=== PATIENT | male | born 1955 | race Caucasian/White ===

== ENCOUNTER 2021-10-25 14:42 | Inpatient (IN) | payer OTHER ==
[~2021-10-25] VITALS: Ht 175.2 cm; Wt 89.7 kg
[~2021-10-25 14:42] MED LIST: ATIVAN1 MG PO; CAPOTEN25 MG PO; DEBROX 30 ML30 ML OT; TRAMADOL HCL50 MG PO; TRIMOX500 MG PO; VICODIN 500 MG-1 TAB PO
[2021-10-25] MEDS ORDERED: RISPERIDONE1 M1 PO (15:47)
[2021-10-25] MEDS ORDERED: REMERON15 M2 PO (15:48)
[2021-10-25] MEDS ORDERED: DEPAKOTE DR500 MG PO (15:49)
[2021-10-25] MEDS ORDERED: ADMELOG100 UNIT/1 SQ (15:54)
[2021-10-25] MEDS ORDERED: COZAAR100 MG PO (15:55)
[2021-10-25] MEDS ORDERED: SEMGLEE100 UNIT/1 SC (16:00)
[2021-10-25] MEDS ORDERED: ALBUTEROL S5 MG/1 ML INH (16:03)
[2021-10-25] MEDS ORDERED: ELIQUIS5 M1 PO (16:04)
[2021-10-25] MEDS ORDERED: FAMOTIDINE20 MG/2 ML IV (16:35)
[2021-10-25] MEDS ORDERED: DIABETIC T100 MG/52 NG (16:39)
[2021-10-25] MEDS ORDERED: Hydralazine Hyd25 MG PO (16:41)
[2021-10-25 17:32] VITALS: BP 102/73
[2021-10-25] MEDS ORDERED: PROAIR DIGIHAL90 MCG INH (17:50)
[2021-10-25] MEDS ORDERED: FLONASE ALLERG9.9 ML NAS (17:52)
[2021-10-25] MEDS ORDERED: LORADAMED10 MG PO (17:54)
[2021-10-25] MEDS ORDERED: NITROSTAT0.4 MG SL (17:56)
[2021-10-25] MEDS ORDERED: PROTONIX40 MG PO (17:57)
[2021-10-25] MEDS ORDERED: SPIRIVA RESPIMAT4 GM INH (18:00)
[2021-10-25] MEDS ORDERED: CRESTOR40 M1 PO (18:01)
[2021-10-25] MEDS ORDERED: METOPROLOL SUCC50 M2 PO (18:02)
[2021-10-25] MEDS ORDERED: ST. JOSEPH ASPI81 M1 PO (18:04)
[2021-10-25] MEDS ORDERED: VIMPAT100 MG PO (18:11)
[2021-10-25] MEDS ORDERED: HYDROXYZINE PAM25 M1 PO (18:12)
[2021-10-25 20:00] VITALS: BP 111/65
[2021-10-26 07:04] LABS: BASO % 0.7 % (0.0-1.0); EOS # 0.3 10*3/uL (0.0-0.4); EOS % 4.6 % (1.0-4.0); HEMATOCRIT 42.1 % (42.0-52.0); LYMPH # 1.2 10*3/uL (1.3-4.4); LYMPH % 21.6 % (27.0-41.0); MEAN CELL VOLUME 89.8 fl (80.0-94.0); MEAN CORPUSCULAR HGB 29.2 pg (27.0-31.0); MEAN CORPUSCULAR HGB CONC 32.5 g/dl (33.0-37.0); MEAN PLATELET VOLUME 8.9 fl (9.6-12.3); MONO # 0.8 10*3/uL (0.1-1.0); MONO % 14.9 % (3.0-9.0); NEUT # 3.3 10*3/uL (2.3-7.9); NEUT % 57.5 % (47.0-73.0); PLATELET COUNT AUTOMATED 141 10*3/uL (130-400); RED BLOOD COUNT 4.69 10*6/uL (4.50-5.90); RED CELL DISTRI WIDTH 13.1 % (0-14.5); WHITE BLOOD COUNT 5.7 10*3/uL (4.8-10.8)
[2021-10-26 07:25] LABS: ALBUMIN 2.4 gm/dl (3.1-4.5); ALKALINE PHOSPHATASE 46 U/L (45-117); BUN 19 mg/dl (7-24); CHLORIDE 107 mmol/L (98-107); CHOLESTEROL 116 mg/dL (<200); LDL CHOLESTEROL 61 mg/dL (9-159); POTASSIUM 3.4 mmol/L (3.5-5.1); SGOT/AST 31 IU/L (3-35); SGPT/ALT 36 U/L (12-78); SODIUM 142 mmol/L (136-145); TRIGLYCERIDES 89 mg/dl (<150)
[2021-10-26 07:32] LABS: THYROID STIM HORMONE (HS) 0.615 uIU/ml (0.358-4.75)
[2021-10-26 07:38] VITALS: BP 135/58
[2021-10-26 20:07] VITALS: BP 132/82
[2021-10-27 07:37] VITALS: BP 139/90
[2021-10-27 09:17] LABS: BASO # 0.1 10*3/uL (0.0-0.1); BASO % 0.9 % (0.0-1.0); EOS # 0.3 10*3/uL (0.0-0.4); EOS % 4.5 % (1.0-4.0); HEMATOCRIT 43.5 % (42.0-52.0); LYMPH % 17.1 % (27.0-41.0); MEAN CELL VOLUME 89.7 fl (80.0-94.0); MEAN CORPUSCULAR HGB 28.7 pg (27.0-31.0); MEAN PLATELET VOLUME 8.7 fl (9.6-12.3); MONO # 0.9 10*3/uL (0.1-1.0); MONO % 15.3 % (3.0-9.0); NEUT # 3.5 10*3/uL (2.3-7.9); NEUT % 61.2 % (47.0-73.0); PLATELET COUNT AUTOMATED 154 10*3/uL (130-400); RED BLOOD COUNT 4.85 10*6/uL (4.50-5.90); WHITE BLOOD COUNT 5.7 10*3/uL (4.8-10.8)
[2021-10-27 09:30] LABS: INTERNATIONAL NORM RATIO 1.2 (2.0-3.5)
[2021-10-27 14:38] LABS: BILIRUBIN 1+ (Negative); BLOOD 3+ (Negative); CLARITY Cloudy (Clear); COLOR Orange (Yellow); GLUCOSE Negative (Negative); KETONE Trace (Negative); LEUKO ESTERASE 1+ (Negative); NITRITE Negative (Negative); SPECIFIC GRAVITY 1.025 (1.001-1.030)
[2021-10-27 14:40] LABS: RBC TNTC rbc/hpf (0-2)
[2021-10-27 20:00] VITALS: BP 115/50
[2021-10-28 07:20] LABS: BASO # 0.1 10*3/uL (0.0-0.1); BASO % 0.9 % (0.0-1.0); EOS # 0.3 10*3/uL (0.0-0.4); EOS % 4.7 % (1.0-4.0); HEMATOCRIT 42.4 % (42.0-52.0); LYMPH # 1.9 10*3/uL (1.3-4.4); LYMPH % 28.6 % (27.0-41.0); MEAN CORPUSCULAR HGB 28.8 pg (27.0-31.0); MEAN CORPUSCULAR HGB CONC 31.6 g/dl (33.0-37.0); MEAN PLATELET VOLUME 9.3 fl (9.6-12.3); MONO # 0.9 10*3/uL (0.1-1.0); MONO % 13.8 % (3.0-9.0); NEUT # 3.4 10*3/uL (2.3-7.9); NEUT % 50.8 % (47.0-73.0); PLATELET COUNT AUTOMATED 176 10*3/uL (130-400); RED BLOOD COUNT 4.66 10*6/uL (4.50-5.90); RED CELL DISTRI WIDTH 12.9 % (0-14.5); WHITE BLOOD COUNT 6.7 10*3/uL (4.8-10.8)
[2021-10-28 08:13] VITALS: BP 132/66
[2021-10-28 20:00] VITALS: BP 144/84
[2021-10-29 07:39] VITALS: BP 121/67
[2021-10-29 11:38] LABS: HEMATOCRIT 34.4 % (42.0-52.0); MEAN CELL VOLUME 90.5 fl (80.0-94.0); MEAN CORPUSCULAR HGB 29.2 pg (27.0-31.0); MEAN CORPUSCULAR HGB CONC 32.3 g/dl (33.0-37.0); MEAN PLATELET VOLUME 9.2 fl (9.6-12.3); RED CELL DISTRI WIDTH 13.1 % (0-14.5); WHITE BLOOD COUNT 4.4 10*3/uL (4.8-10.8)
[2021-10-29 11:39] LABS: PLATELET COUNT AUTOMATED 106 10*3/uL (130-400)
[2021-10-29 11:53] LABS: BASOPHILS 1 % (0-1); OVALOCYTES FEW; PLATELET SUFFICIENCY LOW (NORMAL); TOTAL CELLS COUNTED 100 #CELLS
[2021-10-29 20:00] VITALS: BP 147/73
[2021-10-30 06:27] LABS: HEMATOCRIT 37.2 % (42.0-52.0); MEAN CELL VOLUME 91.2 fl (80.0-94.0); MEAN CORPUSCULAR HGB 28.9 pg (27.0-31.0); MEAN CORPUSCULAR HGB CONC 31.7 g/dl (33.0-37.0); MEAN PLATELET VOLUME 9.1 fl (9.6-12.3); PLATELET COUNT AUTOMATED 106 10*3/uL (130-400); RED BLOOD COUNT 4.08 10*6/uL (4.50-5.90); RED CELL DISTRI WIDTH 13.2 % (0-14.5)
[2021-10-30 06:47] LABS: BUN 18 mg/dl (7-24); CHLORIDE 105 mmol/L (98-107); CREATININE 0.94 mg/dL (0.70-1.30); POTASSIUM 3.9 mmol/L (3.5-5.1); SODIUM 142 mmol/L (136-145)
[2021-10-30 07:29] VITALS: BP 145/82; BP 165/69
[2021-10-30 08:12] LABS: ATYPICAL LYMPHS 1 % (0-0); BASOPHILS 1 % (0-1); TOTAL CELLS COUNTED 100 #CELLS
[2021-10-30 08:13] LABS: OVALOCYTES FEW; PLATELET SUFFICIENCY LOW (NORMAL); POLYCHROMASIA SLIGHT
[2021-10-30 20:00] VITALS: BP 140/67
[2021-10-31 08:10] VITALS: BP 133/81
[2021-10-31 20:00] VITALS: BP 132/59
[2021-11-01 08:07] VITALS: BP 142/76
[2021-11-01] MEDS ORDERED: DIVALPROEX SOD500 MG PO (09:42)
[2021-11-01] MEDS ORDERED: LORAZEPAM0.5 MG PO (09:42)
[2021-11-01] MEDS ORDERED: VITAMIN D3125 MC1 PO (09:42)
[2021-11-01] MEDS ORDERED: MIRTAZAPINE15 M2 PO (09:42)
[2021-11-01] MEDS ORDERED: ROZEREM8 MG PO (09:42)
== END 2021-11-01 13:15 | disposition home or self-care (01) | DRG 883 ==
LOC: 3N 14:42
PROVIDERS: Family Medicine; Internal Medicine; ADMIT Psychiatry & Neurology Psychiatry; ATTEND Psychiatry & Neurology Psychiatry
PROC: BD1BYZZ Fluoroscopy of Mouth/Oropharynx using Other Contrast (ICD-10-PCS; principal; 2021-10-29)
DX: F63.81 Intermittent explosive disorder (principal); E43 Unspecified severe protein-calorie malnutrition; E11.65 Type 2 diabetes mellitus with hyperglycemia; F33.2 Major depressive disorder, recurrent severe without psychotic features; K21.9 Gastro-esophageal reflux disease without esophagitis; K72.90 Hepatic failure, unspecified without coma; M19.90 Unspecified osteoarthritis, unspecified site; Z20.822 Contact with and (suspected) exposure to COVID-19; J44.9 Chronic obstructive pulmonary disease, unspecified; E78.5 Hyperlipidemia, unspecified; D64.9 Anemia, unspecified; E87.6 Hypokalemia; E55.9 Vitamin D deficiency, unspecified; Z88.4 Allergy status to anesthetic agent; Z86.73 Personal history of transient ischemic attack (TIA), and cerebral infarction without residual deficits; I25.2 Old myocardial infarction; Z95.5 Presence of coronary angioplasty implant and graft; Z95.0 Presence of cardiac pacemaker; Z68.29 Body mass index [BMI] 29.0-29.9, adult

== ENCOUNTER 2023-06-04 14:34 | Inpatient (IN) | payer OTHER ==
[~2023-06-04] VITALS: Ht 175.3 cm; Wt 79.5 kg
[~2023-06-04 14:34] MED LIST changes: +ADMELOG100 UNIT/1 SQ; +ALBUTEROL S5 MG/1 ML INH; +ALDACTONE25 MG PO; +AMMONIUM LACTA227 GM T; +ARTIFICIAL TEAR1514 OP; +ARTIFICIALS TEA30 ML OP; +ATIVAN0.5 MG PO; +CLONAZEPAM1 MG PO; +COZAAR100 MG PO; +CRESTOR40 M1 PO; +DEPAKOTE DR500 MG PO; +DEPAKOTE ER500 MG PO; +DIABETIC T100 MG/52 NG; +DIVALPROEX SOD250 M1 PO; +DIVALPROEX SOD500 M1 PO; +DIVALPROEX SOD500 MG PO; +ELIQUIS5 M1 PO; +EXELON1 EAC1 TD; +FAMOTIDINE20 MG/2 ML IV; +FLONASE ALLERG9.9 ML NAS; +HYDRALAZINE HYD50 MG PO; +HYDROXYZINE PAM25 M1 PO; +Hydralazine Hyd25 MG PO; +Ipratropium Brom3 ML INH; +KLONOPIN2 M1 PO; +LAMICTAL25 MG PO; +LANTUS SOL100 UNIT/1 SC; +LASIX20 MG PO; +LIPITOR40 MG PO; +LISINOPRIL10 M1 PO; +LOPRESSOR50 M1 PO; +LORADAMED10 MG PO; +LORAZEPAM0.5 MG PO; +LORAZEPAM1 MG PO; +METOPROLOL SUCC50 M2 PO; +MIRTAZAPINE15 M2 PO; +NAMENDA-5 PO; +NITROSTAT0.4 MG SL; +PROAIR DIGIHAL90 MCG INH; +PROTONIX40 MG PO; +REMERON15 M2 PO; +RISPERIDONE0.5 MG PO; +RISPERIDONE1 M1 PO; +RISPERIDONE1 MG PO; +RIVASTIGMINE1 EACH T; +ROZEREM8 MG PO; +SEMGLEE100 UNIT/1 SC; +SEROQUEL XR50 MG PO; +SEROQUEL100 MG PO; +SEROQUEL50 MG PO; +SPIRIVA RESPIMAT4 GM INH; +ST. JOSEPH ASPI81 M1 PO; +TRAZODONE100 MG PO; +TYLENOL325 M1 PO; +VIBRA-TAB100 MG PO; +VIMPAT100 MG PO; +VIMPAT200 MG PO; +VISTARIL25 MG PO; +VISTARIL50 MG PO; +VITAMIN D210 MCG PO; +VITAMIN D250 MCG PO; +VITAMIN D3125 MC1 PO
[2023-06-04 16:25] VITALS: BP 111/72
[2023-06-04 17:41] VITALS: BP 79/58
[2023-06-04 20:00] VITALS: BP 77/41
[2023-06-05] VITALS: BP 81/39
[2023-06-05 04:00] VITALS: BP 109/48
[2023-06-05 08:00] VITALS: BP 118/44
[2023-06-05 12:00] VITALS: BP 117/52
[2023-06-05 16:00] VITALS: BP 89/49
[2023-06-05 20:00] VITALS: BP 105/36
[2023-06-06] VITALS: BP 99/49
[2023-06-06 08:00] VITALS: BP 106/58
[2023-06-06 12:00] VITALS: BP 85/49
[2023-06-06 16:00] VITALS: BP 48/17
[2023-06-06 20:00] VITALS: BP 72/29
[2023-06-07] VITALS: BP 60/32
[2023-06-07 04:00] VITALS: BP 68/27
[2023-06-07 08:00] VITALS: BP 53/23
== END 2023-06-07 19:14 | DRG 291 ==
LOC: ICCU 14:34
PROVIDERS: ADMIT Student in an Organized Health Care Education/Training Program; ATTEND Student in an Organized Health Care Education/Training Program
DX: I11.0 Hypertensive heart disease with heart failure (principal); I50.23 Acute on chronic systolic (congestive) heart failure; J81.0 Acute pulmonary edema; E44.0 Moderate protein-calorie malnutrition; Z20.822 Contact with and (suspected) exposure to COVID-19; F05 Delirium due to known physiological condition; J44.9 Chronic obstructive pulmonary disease, unspecified; R45.1 Restlessness and agitation; K21.9 Gastro-esophageal reflux disease without esophagitis; E11.65 Type 2 diabetes mellitus with hyperglycemia; E78.5 Hyperlipidemia, unspecified; F32.A Depression, unspecified; D64.9 Anemia, unspecified; Z66 Do not resuscitate; D72.829 Elevated white blood cell count, unspecified; Z79.4 Long term (current) use of insulin; Z51.5 Encounter for palliative care